=== PATIENT | female | born 1930 | race Caucasian/White ===

== ENCOUNTER 2017-02-26 00:08 | Inpatient (IN) | payer OTHER, MEDICARE ==
[~2017-02-26] VITALS: Ht 149.9 cm; Wt 49.4 kg
--- NOTE | ~2017-02-26 | HC ---
[facility] [place] [address] CONSULTATION Name: JOELLEN LIVE Room #: 304-P [facility] IN M.R.#: [id number] Admission: 02/26/17 Attend Phys: Haris Overton MD Discharge: 03/01/17 Date of : 32 Report #: [id number] THIS REPORT FOR: //name// CC: Cuate Santiago DATE OF SERVICE: 02/27/2017 REASON FOR CONSULTATION: Exacerbation of chronic obstructive pulmonary disease. IMPRESSION: 1. Acute on chronic respiratory failure. 2. Debilitation. 3. Hypertension. 4. Anxiety. 5. Possible pneumonia. PLAN: We will titrate off corticosteroids, continue pulmonary toilet, PT/OT to see, currently on Levaquin, may consider alternatives. HISTORY OF PRESENT ILLNESS: The patient is a very pleasant 86-year-old female, had seen Dr. Santiago a couple of weeks ago, had some corticosteroids, I believe, and antibiotic; however, still worsened despite this and comes in through the Emergency Room with progressive shortness of breath. No definite chest pain, palpitations. Positive cough, no sputum production. PAST SURGICAL HISTORY: Include hysterectomy, left hip repair. ALLERGIES: ASPIRIN, CODEINE, and PENICILLIN. MEDICATIONS: Included diltiazem, hydrochlorothiazide, prednisone, multivitamin, Fosamax, iron, Zocor, Daliresp, DuoNeb, Spiriva, lisinopril. SOCIAL HISTORY: Positive tobacco in the past. Rare ETOH. FAMILY HISTORY: Noncontributory. REVIEW OF SYSTEMS: No fever, chills or night sweats. Positive cough, no sputum, no hemoptysis, hematemesis, or hematuria. No syncope. No new myalgias or arthralgias. No vomiting. PHYSICAL EXAMINATION: VITAL SIGNS: Temperature 98.2, pulse 85, respirations 18, BP 103/55. EYES: Negative icterus. NECK: Trachea midline. [facility] [address] [place] [address] CONSULTATION Name: JOELLEN LIVE SOCTT Room #: 304-P ON LICENSE OF [facility]#: [id number] Admission: 02/26/17 Attend Phys: Haris Overton MD Discharge: 03/01/17 Date of : 32 Report #: [id number] LUNGS: Showed decreased breath sounds, wheeze bilaterally. HEART: Regular. ABDOMEN: Bowel sounds present. EXTREMITIES: Showed no edema. GENERAL: Sitting up, eating when I saw her earlier. LABORATORY DATA: Labs and x-rays were reviewed. <ELECTRONICALLY SIGNED> By: Alverto Olvera MD 03/03/17 1449 1945 [id number] Alverto Olvera MD /nt
--- NOTE | ~2017-02-26 | 2DMMODE ---
[facility] [place] [employer] [place] [address] 2 D/M-MODE ECHOCARDIOGRAM Name: LIVEJOELLEN Room #: 304-P [facility] IN M.R.#: [id number] Admission: 02/26/17 Attend Phys: Erik Lau Discharge: Date of : 32 Date of Service: 02/27/17 1542 Report #: [id number] THIS REPORT FOR: //name// APPROVED REPORT Study performed: 02/27/2017 14:10:02 EXAM: Comprehensive 2D, Doppler, and color-flow Echocardiogram Patient Location: Bedside Room #: 304 Blood Pressure: 157/53 mmHg HR: 75 bpm Rhythm: NSR Other Information Study Quality: Adequate Indications Shortness of breath, CHF, ?PHTN. Hx: COPD, HTN 2D Dimensions RVDd: 34.82 mm LVEF(%): 62.94 (>50%) IVSd: 9.71 (7-11mm) LVOT Diam: 19.92 (18-24mm) LVDd: 42.87 mm PWd: 9.15 (7-11mm) Ascending Ao: 35.76 (22-36mm) LVDs: 28.39 (25-40mm) Aortic Root: 30.93 mm Montalvo's LVEF: 62.94 % Volumes Left Atrial Volume (Systole) Single Plane 4CH: 50.56 mL Single Plane 2CH: 61.20 mL LA ESV Index: 42.00 mL/m2 Aortic Valve AoV Peak Jesus.: 3.27 m/s AO Peak Gr.: 42.69 mmHg LVOT Max P.47 mmHg AO Mean Gr.: 25.46 mmHg AO V2 Mean: 2.43 m/s LVOT Max V: 1.27 m/s AO V2 VTI: 78.59 cm SCARLET Vmax: 1.21 cm2 [facility] [address] [place] [address] 2 D/M-MODE ECHOCARDIOGRAM Name: JOELLEN LIVE Room #: 304-P [facility]..#: [id number] Admission: 02/26/17 Attend Phys: Erik Lau Discharge: Date of : 32 Date of Service: 02/27/17 1542 Report #: [id number] Mitral Valve MV Mean Gr.: 5.61 mmHg E/A Ratio: 0.8 MV Decel. Time: 219.82 ms MV E Max Jesus.: 1.46 m/s MV A Jesus.: 1.73 m/s MV VTI: 421.02 mm MV PHT: 63.75 ms IVRT: 50.75 ms Pulmonary Valve PV Peak Jesus.: 1.29 m/s PV Peak Gr.: 6.68 mmHg Pulmonary Vein P Vein S: 61.1 m/s P Vein D: 48.5 m/s Tricuspid Valve TR Peak Jesus.: 2.34 m/s RAP Estimate: 10.00 mmHg TR Peak Gr.: 21.95 mmHg RVSP: 32.00 mmHg Left Ventricle The left ventricle is normal size. There is normal LV segmental wall motion. There is normal left ventricular wall thickness. Left ventricular systolic function is normal. LVEF is 55-60%. Grade I - abnormal relaxation pattern. Right Ventricle The right ventricle is normal size. The right ventricular systolic function is normal. Atria Left atrium is moderately dilated. Right atrium is at the upper limits of normal. Aortic Valve Aortic valve is moderately calcified. No aortic regurgitation is present. Moderate aortic stenosis. SCARLET by continuity equation is 1.3cm2. Mitral Valve Moderate to severe mitral annular calcification. Mild mitral regurgitation. No mitral stenosis. Tricuspid Valve The tricuspid valve is normal in structure. There is mild tricuspid regurgitation. The right atrial pressure is estimated at 10 [place] [address] 2 D/M-MODE ECHOCARDIOGRAM Name: JOELLEN LIVE Room #: 304-P [facility] IN [facility]#: [id number] Admission: 02/26/17 Attend Phys: Erik Lau Discharge: Date of : 32 Date of Service: 02/27/17 1542 Report #: [id number] There is mild pulmonary hypertension with an estimated PAP of 32mmHg. Pulmonic Valve The pulmonary valve is normal in structure. Mild pulmonic regurgitation. Great Vessels The aortic root is normal in size. The ascending aorta is normal in size. IVC is dilated. Pericardium There is no pericardial effusion. <Conclusion> The left ventricle is normal size. Left ventricular systolic function is normal. Grade I - abnormal relaxation pattern. The right ventricle is normal size. Left atrium is moderately dilated. Moderate aortic stenosis. SCARLET by continuity equation is 1.3cm2. Moderate to severe mitral annular calcification. Mild mitral regurgitation. There is mild tricuspid regurgitation. The right atrial pressure is estimated at 10 mmHg. There is mild pulmonary hypertension with an estimated PAP of 32mmHg. <ELECTRONICALLY SIGNED> By: Raul Eng MD 02/27/17 1542 [id number] Raul Eng MD /INF
--- NOTE | ~2017-02-26 | H ---
[facility] [place] [address] HISTORY AND PHYSICAL Name: JOELLEN LIVE Room #: 304-P [facility] IN M.R.#: [id number] Admission: 02/26/17 Attend Phys: Haris Overton MD Discharge: 03/01/17 Date of : 32 Report #: [id number] THIS REPORT FOR: //name// CC: Cuate Santiago ATTENDING PHYSICIAN: Ting Jennings MD PRIMARY CARE PHYSICIAN: Cuate Moraes MD CHIEF COMPLAINT: Shortness of air. HISTORY OF PRESENT ILLNESS: The patient is an 86-year-old female with a history of oxygen dependent COPD. She came into the ER complaining of shortness of breath. It has been getting worse since yesterday morning. She normally wears 4 liters of oxygen at home. She has had mostly a nonproductive cough that has been getting more frequent. She has been using some [id number] cough syrup. She just saw Dr. Santiago with pulmonary last week and was started on prednisone and doxycycline. Despite this her symptoms have been worsened. She has been hospitalized here multiple times for COPD exacerbation. She denies any fevers or chills. Her oxygen saturation has been fine on her normal 4 liters. She has been admitted for COPD exacerbation. PAST MEDICAL HISTORY: COPD, hypertension, hyperlipidemia, PVD, anxiety. PAST SURGICAL HISTORY: Left hip repair, hysterectomy. ALLERGIES: ASPIRIN, CODEINE, AND PENICILLIN. HOME MEDICATIONS: Xanax 0.5 mg p.o. t.i.d. p.r.n., lisinopril 10 mg daily, Spiriva 1 capsule daily, DuoNebs q. 4 hours, Advair 2 puffs b.i.d., donepezil 5 mg daily, Tylenol p.r.n., vitamin D daily, Daliresp 500 mg daily, Zocor 40 mg at bedtime, Fosamax weekly, iron 65 mg daily, multivitamin daily, prednisone 10 mg daily, hydrochlorothiazide 25 mg daily, Lasix 20 mg daily, diltiazem 180 mg daily. SOCIAL HISTORY: The patient is an ex-smoker, having quit 15-20 years ago after smoking since the age of 22. She drinks alcohol rarely, lives with her sister. She normally ambulates with a walker or cane. FAMILY HISTORY: Noncontributory. REVIEW OF SYSTEMS: Twelve point review of systems was reviewed with the patient, otherwise negative unless stated in the HPI. PHYSICAL EXAMINATION: [address] [address] HISTORY AND PHYSICAL Name: JOELLEN LIVE Room #: 304-P [facility].#: [id number] Admission: 02/26/17 Attend Phys: Haris Overton MD Discharge: 03/01/17 Date of : 32 Report #: [id number] GENERAL: The patient is an alert female in no acute distress. VITAL SIGNS: Temperature 37.1, heart rate 77, respirations 22, blood pressure is 167/69, oxygen 97% on room air. HEENT: PERRLA. Sclerae are nonicteric. Oral mucosa is pink and moist. NECK: Supple, no JVD noted. CARDIOVASCULAR: Normal S1, S2. No murmurs, rubs or gallops. RESPIRATORY: Breath sounds do have some bilateral rhonchi. She does have an extended expiratory phase which seems very worst. She does have a few fine crackles in both bases as well. ABDOMEN: Soft, nontender, nondistended with positive bowel sounds. VASCULAR: No edema noted. Pedal pulses are 2+. NEUROLOGIC: The patient is alert and oriented x 3. Speech is clear. She is moving all extremities equally. No focal neuro deficits noted. I did see her ambulate. She was steady on her feet. LABS AND DIAGNOSTICS: ABG showed a pH of 7.44, pCO2 of 61.6, pO2 of 72.3, bicarbonate of 41.4, and lactate of 0.96. Sodium is 125, potassium 2.6, BUN 17, creatinine 0.8, glucose 113, magnesium 1.6, WBC is 9.8, hemoglobin 11.2 and platelets 375. ASSESSMENT AND PLAN: 1. Acute on chronic respiratory failure. Continue with IV steroids and breathing treatments. We will hold off on any further antibiotic. chest x-ray was negative and she is afebrile without leukocytosis. She did have some mild vascular congestion on her chest x-ray. We will add BNP and if elevated we will try a dose of Lasix. 2. Hypertension. Blood pressure is elevated. Resume home meds. 3. Hypomagnesemia and hypokalemia. These will be replaced and then initiate electrolyte replacement protocol. 4. Anxiety. Continue Xanax as needed at home. 5. Deep venous thrombosis prophylaxis, place sequential compression devices. We will continue to follow the patient closely throughout the hospitalization and make changes based on clinical status. <ELECTRONICALLY SIGNED> By: HELEN Conteh 03/07/17 0109 0915 [address], LABELLING MACHINE OPERATOR /nt
[~2017-02-26 00:08] MED LIST: ACCUNEB SO1.25 MG/1 IH; ACCUNEB SO1.25 MG/1 INH; ACETAMINOPHEN650 M5 PO; ADULT LOW DOSE81 MG PO; ADVAIR 250-501 EACH INH; ADVAIR HFA 1112 UNIT INH; ALBUTEROL NEB; ALBUTEROL2.5 MG/31 INH; ALPRAZOLAM 0.0.25 M1 PO; ALPRAZOLAM 0.50.5 M1 PO; ARICEPT 5 MG TAB5 MG PO; AVELOX 400 MG400 MG PO; CARDIZEM CD180 MG PO; CENTRUM SILVER1 EAC4 PO; CEPACOL SORE T1 EAC7 PO; CERTAGEN TABLE1 EACH PO; DALIRESP500 MCG PO; DILTIAZEM 24HR180 MG PO; DILTIAZEM ER180 M1 PO; DOXYCYCLINE 10100 M1 PO; DOXYCYCLINE 10100 MG PO; ENOXAPARIN30 MG/0.1 SUBQ; FISH OIL 1,001000 M2 PO; FOSAMAX 70 MG T70 M1 PO; FUROSEMIDE 20 M20 MG PO; HEPARIN SO5000 UNIT2 SUBQ; HYDROCHLOROTHIA25 M1 PO; HYDROCHLOROTHIA25 M2 PO; HYDROCODON-ACE1 EAC7 PO; IRON325 PO; K-DUR 20 MEQ T20 MEQ PO; KLOR-CON 1010 MEQ PO; LASIX 20 MG TAB20 MG PO; LEVAQUIN 500 M500 M2 PO; LISINOPRIL10 MG PO; MELATONIN3 MG PO; MUCINEX TA600 MG/TA1 PO; NORCO 5-325 TA1 EACH PO; NORVASC 5 MG TAB5 MG PO; POTASSIUM20 PO; PREDNISONE; PREDNISONE 10 M10 M1 PO; PREDNISONE 10 M10 MG PO; PREDNISONE 20 M20 M1 PO; PREDNISONE 20 M20 MG PO; PREDNISONE 5 MG5 MG PO; PREDNISONE PO; PREDNISONE50 MG PO; PRILOSEC 20 MG20 MG PO; PROAIR HFA8.5 GM INH; PROCARDIA10 MG PO; RESTORIL15 MG PO; SIMVASTATIN40 MG PO; SPIRIVA; SPIRIVA INH; SYMBICORT160 MCG/4. INH; SYMBICORT80 MCG/4.1 IH; SYMBICORT80 MCG/4.1 INH; TYLENOL325 MG PO; VITAMIN D1000 UNI1 PO; XANAX 0.25 MG0.25 MG PO; ZOCOR 20 MG TAB20 M1 PO; ZOCOR40 MG PO; ZOFRAN4 MG PO
[2017-02-26 00:09] VITALS: BP 167/69
[2017-02-26 00:48] LABS: ABG SAMPLE TYPE ARTERIAL; BE(vivo) 14.8 mmol/L (-2 to +3); HCO3 41.4 mmol/L (22.0-26.0); LACTATE 0.96 mmol/L (0.5-2.0); O2(CT) 15.5 mL/dL (15.0-23.0); O2Hb 93.4 % (92.0-98.0); PCO2 61.6 mmHg (35.0-45.0); PO2 72.3 mmHg (80.0-100.0); STICK SITE R.BRACHIAL; pH 7.445 (7.360-7.450); sO2 94.7 % (92.0-98.0); tCO2 43.3 mmol/L (24.0-30.0)
[2017-02-26 01:07] LABS: HEMATOCRIT 33.2 % (37.0-47.0); HEMOGLOBIN 11.2 gm/dL (12.0-15.0); MCH 29.9 pg (26.0-34.0); MCHC 33.8 g/dL (28.0-37.0); MCV 88.5 fL (80.0-100.0); PLATELET COUNT 375 thou/uL (150-400); RBC 3.75 mil/uL (4.20-5.00); RDW 14.2 % (10.5-14.5); WBC 9.8 thou/uL (4.0-11.0)
[2017-02-26 01:08] LABS: MANUAL DIFF YES
[2017-02-26 01:13] LABS: CALCIUM 9.3 mg/dL (8.5-10.1); CREATININE 0.8 mg/dL (0.6-1.0)
[2017-02-26 01:15] LABS: POTASSIUM 2.6 mmol/L (3.5-5.1)
[2017-02-26 01:22] LABS: ABSOLUTE NEUTROPHILS 7.5 thou/uL (1.4-8.2); METAMYELOCYTES 1 %; TOTAL CELL COUNT 100
[2017-02-26 01:59] VITALS: BP 147/72
[2017-02-26 02:20] VITALS: BP 159/61
[2017-02-26] MEDS ORDERED: KLOR-CON 1010 MEQ PO (03:50)
[2017-02-26 07:29] VITALS: BP 151/75
[2017-02-26 07:54] LABS: URINE BILIRUBIN NEGATIVE (Negative); URINE BLOOD TRACE (Negative); URINE COLOR YELLOW; URINE GLUCOSE-RANDOM* NEGATIVE (Negative); URINE KETONES TRACE (Negative); URINE NITRITE NEGATIVE (Negative); URINE PROTEIN (DIPSTICK) NEGATIVE (Negative); URINE UROBILINOGEN 0.2 E.U./dl (0.2-1.0)
[2017-02-26 15:08] VITALS: BP 132/87
[2017-02-26 20:00] VITALS: BP 125/70
[2017-02-27 04:49] VITALS: BP 129/53
[2017-02-27 05:35] LABS: CALCIUM 8.6 mg/dL (8.5-10.1); CREATININE 0.9 mg/dL (0.6-1.0)
[2017-02-27 07:32] VITALS: BP 127/53
[2017-02-27 16:17] VITALS: BP 103/55
[2017-02-27 19:50] VITALS: BP 139/49
[2017-02-28 04:20] VITALS: BP 141/62
[2017-02-28 05:45] LABS: HEMATOCRIT 29.5 % (37.0-47.0); HEMOGLOBIN 9.8 gm/dL (12.0-15.0); MCH 29.4 pg (26.0-34.0); MCHC 33.4 g/dL (28.0-37.0); MCV 88.2 fL (80.0-100.0); PLATELET COUNT 387 thou/uL (150-400); RBC 3.34 mil/uL (4.20-5.00); RDW 14.4 % (10.5-14.5); WBC 18.5 thou/uL (4.0-11.0)
[2017-02-28 05:46] LABS: MANUAL DIFF YES
[2017-02-28 06:00] LABS: CALCIUM 8.8 mg/dL (8.5-10.1); POTASSIUM 4.2 mmol/L (3.5-5.1)
[2017-02-28 07:33] LABS: ABSOLUTE NEUTROPHILS 17.6 thou/uL (1.4-8.2); ANISOCYTOSIS 1+; TOTAL CELL COUNT 100
[2017-02-28 07:34] LABS: OVALOCYTES FEW; SCHISTOCYTES FEW
[2017-02-28 07:54] VITALS: BP 136/52
[2017-02-28 16:17] VITALS: BP 135/75
[2017-02-28 20:33] VITALS: BP 138/58
[2017-03-01 03:07] VITALS: BP 16/66
[2017-03-01 08:02] VITALS: BP 149/56
[2017-03-01 10:58] LABS: HEMATOCRIT 29.6 % (37.0-47.0); HEMOGLOBIN 9.7 gm/dL (12.0-15.0); MCH 29.8 pg (26.0-34.0); MCHC 32.9 g/dL (28.0-37.0); MCV 90.6 fL (80.0-100.0); PLATELET COUNT 392 thou/uL (150-400); RBC 3.26 mil/uL (4.20-5.00); RDW 14.5 % (10.5-14.5); WBC 15.1 thou/uL (4.0-11.0)
[2017-03-01 10:59] LABS: MANUAL DIFF YES
[2017-03-01 11:07] LABS: CALCIUM 8.8 mg/dL (8.5-10.1)
[2017-03-01 11:24] LABS: ABSOLUTE NEUTROPHILS 13.9 thou/uL (1.4-8.2); ANISOCYTOSIS 1+; METAMYELOCYTES 1 %; MYELOCYTES 1 %; TOTAL CELL COUNT 100
[2017-03-01 11:25] LABS: OVALOCYTES FEW; SCHISTOCYTES FEW
[2017-03-01] MEDS ORDERED: LEVAQUIN 250 M250 MG PO (11:27)
[2017-03-01] MEDS ORDERED: PREDNISONE 20 M20 M1 PO (11:27)
[2017-03-01 13:43] VITALS: BP 149/56
== END 2017-03-01 14:15 | DRG 871 ==
LOC: ER 00:08 → EROBS 01:34 → 3N 01:34
PROVIDERS: Emergency Medicine; Family Medicine; Hospitalist; Nurse Practitioner Acute Care
DX: A41.9 Sepsis, unspecified organism (principal); J96.21 Acute and chronic respiratory failure with hypoxia; J18.9 Pneumonia, unspecified organism; J44.1 Chronic obstructive pulmonary disease with (acute) exacerbation; J44.0 Chronic obstructive pulmonary disease with (acute) lower respiratory infection; E87.1 Hypo-osmolality and hyponatremia; Z99.81 Dependence on supplemental oxygen; I10 Essential (primary) hypertension; F41.9 Anxiety disorder, unspecified; I27.2 Other secondary pulmonary hypertension; E78.5 Hyperlipidemia, unspecified; I73.9 Peripheral vascular disease, unspecified; Z96.642 Presence of left artificial hip joint; E83.42 Hypomagnesemia; E87.6 Hypokalemia; Z96.659 Presence of unspecified artificial knee joint; J98.4 Other disorders of lung; D64.9 Anemia, unspecified; D72.829 Elevated white blood cell count, unspecified; Z87.891 Personal history of nicotine dependence; Z90.710 Acquired absence of both cervix and uterus; Z88.6 Allergy status to analgesic agent; Z88.0 Allergy status to penicillin; Z79.899 Other long term (current) drug therapy
CPT/HCPCS: 10096

== ENCOUNTER 2017-06-04 12:10 | Inpatient (IN) | payer OTHER, MEDICARE ==
[~2017-06-04] VITALS: Ht 149.9 cm; Wt 51.3 kg
--- NOTE | ~2017-06-04 | EKG ---
[address] [place] [address] ELECTROCARDIOGRAM REPORT Name: MARIA TJOELLEN Room #: 208-P ADM IN M.R.#: [id number] Admission: 06/04/17 Attend Phys: Haris Overton MD Discharge: Date of : 32 Report #: [id number] THIS REPORT FOR: //name// [facility] ED Test Date: 2017-06-04 Test Time: 12:19:08 Pat Name: JOELLEN LIVE Department: Room: 208 Gender: F Senior Sales Administrator: GRACIELA : 1930 Requested By: Den Subramanian Order Number: [id number] MD: Jameson Lawson Measurements Intervals [place] Rate: 95 P: 68 MA: 160 QRS: 71 QRSD: 89 T: 62 QT: 346 QTc: 435 Interpretive Statements Sinus rhythm Left atrial enlargement Borderline low voltage, extremity leads Poor R wave progression Compared to ECG 05/26/2016 11:11:17 Ventricular premature complex(es) no longer present Electronically Signed On 06-05-2017 7:50:58 CDT by Jameson Lawson [email or web address] <ELECTRONICALLY SIGNED> By: Jameson Lawson MD, FACC 06/05/17 0750 1219 1219 Jameson Lawson MD, [facility] /EPI
--- NOTE | ~2017-06-04 | 2DMMODE ---
[facility] [place] [address] 2 D/M-MODE ECHOCARDIOGRAM Name: LIVEJOELLEN Room #: 208-P ADM IN M.R.#: [id number] Admission: 06/04/17 Attend Phys: Erik Lau Discharge: Date of : 32 Date of Service: 06/05/17 0831 Report #: [id number] THIS REPORT FOR: //name// APPROVED REPORT Study performed: 06/05/2017 06:23:22 EXAM: Limited 2D, Doppler, and color-flow Echocardiogram Patient Location: Bedside Room #: 208 Status: routine BSA: 1.47 HR: 84 bpm BP: 146/62 mmHg Rhythm: NSR Other Information Study Quality: Good Indications Limited echo for CHF, SOB, elevated BNP. Hx: COPD (Complete echo done 02/27/2017) 2D Dimensions LVOT Diam: 20.74 (18-24mm) Aortic Valve AoV Peak Jesus.: 3.28 m/s AO Peak Gr.: 42.98 mmHg LVOT Max P.88 mmHg AO Mean Gr.: 26.69 mmHg AO V2 Mean: 2.49 m/s LVOT Max V: 1.10 m/s AO V2 VTI: 72.39 cm SCARLET Vmax: 1.14 cm2 Tricuspid Valve TR Peak Jesus.: 2.29 m/s RAP Estimate: 10.00 mmHg TR Peak Gr.: 20.98 mmHg PA Pressure: 31.00 mmHg Left Ventricle The left ventricle is normal size. There is normal LV segmental wall motion. The left ventricular systolic function is normal. LVEF is 55-60%. This study is not technically sufficient to allow evaluation of the LV diastolic function. Right Ventricle [facility] [address] [place] [address] 2 D/M-MODE ECHOCARDIOGRAM Name: JOELLEN LIVE SCOTT Room #: 208-P ADM IN .R.#: [id number] Admission: 06/04/17 Attend Phys: Erik Lau Discharge: Date of : 32 Date of Service: 06/05/17 0831 Report #: [id number] The right ventricle is normal size. The right ventricular systolic function is normal. Atria Left atrium is dilated. The right atrium size is normal. Aortic Valve Aortic valve is calcified, moderately stenotic. Trace aortic regurgitation. There is moderate valvular aortic stenosis. Calculated aortic valve area is 1.1 cm2 with maximum pressure gradient of 43 mmHg and mean pressure gradient of 27 mmHg. Mitral Valve Heavy mitral annular calcification. Mild mitral regurgitation. Tricuspid Valve The tricuspid valve is normal in structure. There is trace tricuspid regurgitation. The right atrial pressure is estimated at 10 mmHg. There is mild pulmonary hypertension with an estimated PAP of 30mmHg. Great Vessels IVC is dilated and collapses >50% with inspiration. Pericardium There is no pericardial effusion. <Conclusion> The left ventricular systolic function is normal. LVEF is 55-60%. Normal LV segmental wall motion. Aortic valve is calcified, moderately stenotic. Trace insufficiency Calculated aortic valve area is 1.1 cm2 with maximum pressure gradient of 43 mmHg and mean pressure gradient of 27 mmHg. Heavy mitral annular calcification. Mild mitral regurgitation. Pulmonary artery pressure of 30mmHg There is no pericardial effusion. <ELECTRONICALLY SIGNED> By: Jameson Lawson MD, FACC 06/05/17830 0 0 Jameson Lawson MD, FACC /INF
[2017-06-04 12:10] VITALS: BP 161/67
[~2017-06-04 12:10] MED LIST changes: +LEVAQUIN 250 M250 MG PO
[2017-06-04] MEDS ORDERED: MELATONIN5 M1 PO (12:23)
[2017-06-04] MEDS ORDERED: IRON325 PO (12:23)
[2017-06-04 12:24] LABS: ABG SAMPLE TYPE ARTERIAL; BE(vivo) 7.8 mmol/L (-2 to +3); HCO3 32.9 mmol/L (22.0-26.0); O2(CT) 16.1 mL/dL (15.0-23.0); O2Hb 96.2 % (92.0-98.0); PCO2 48.7 mmHg (35.0-45.0); PO2 102.6 mmHg (80.0-100.0); pH 7.448 (7.360-7.450); sO2 97.8 % (92.0-98.0); tCO2 34.4 mmol/L (24.0-30.0)
[2017-06-04 12:25] LABS: STICK SITE R.RADIAL
[2017-06-04] MEDS ORDERED: HYDROCHLOROTHIA25 M2 PO (12:25)
[2017-06-04 12:43] LABS: HEMATOCRIT 33.5 % (37.0-47.0); HEMOGLOBIN 10.9 gm/dL (12.0-15.0); MANUAL DIFF YES; MCH 29.5 pg (26.0-34.0); MCHC 32.4 g/dL (28.0-37.0); PLATELET COUNT 355 thou/uL (150-400); RBC 3.68 mil/uL (4.20-5.00); WBC 13.7 thou/uL (4.0-11.0)
[2017-06-04 13:22] LABS: ABSOLUTE NEUTROPHILS 10.7 thou/uL (1.4-8.2); PLATELET ESTIMATE NORMAL; TOTAL CELL COUNT 100
[2017-06-04 13:24] LABS: CALCIUM 8.9 mg/dL (8.5-10.1); CREATININE 0.7 mg/dL (0.6-1.0); POTASSIUM 3.8 mmol/L (3.5-5.1)
[2017-06-04 13:37] LABS: TROPONIN-I 0.04 ng/mL (<0.04-0.07)
[2017-06-04 14:31] VITALS: BP 136/57
[2017-06-04 15:40] VITALS: BP 131/56
[2017-06-04 16:02] VITALS: BP 165/81
[2017-06-04 20:03] VITALS: BP 151/72
[2017-06-04 23:37] VITALS: BP 170/77
[2017-06-05 02:48] VITALS: BP 146/62
[2017-06-05 04:06] LABS: ALBUMIN 2.8 g/dL (3.4-5.0); CALCIUM 8.8 mg/dL (8.5-10.1); CREATININE 1.1 mg/dL (0.6-1.0); POTASSIUM 3.8 mmol/L (3.5-5.1); TOTAL BILIRUBIN 0.3 mg/dL (<0.1-1.0); TOTAL PROTEIN 6.3 g/dL (6.4-8.2)
[2017-06-05 08:26] VITALS: BP 120/69
[2017-06-05 17:12] VITALS: BP 159/59
[2017-06-05 20:12] VITALS: BP 133/60
[2017-06-06 03:09] VITALS: BP 127/53
[2017-06-06 08:00] VITALS: BP 143/56
[2017-06-06 10:19] LABS: CALCIUM 8.8 mg/dL (8.5-10.1); CREATININE 1.3 mg/dL (0.6-1.0); POTASSIUM 3.9 mmol/L (3.5-5.1)
[2017-06-06 11:55] VITALS: BP 126/54
[2017-06-06 16:05] VITALS: BP 126/65
[2017-06-06 19:40] VITALS: BP 128/56
[2017-06-06 23:23] VITALS: BP 129/53
[2017-06-07] VITALS (7 sets, daily range): BP systolic 137–145; BP diastolic 67–95
[2017-06-07 07:35] LABS: HEMATOCRIT 31.4 % (37.0-47.0); HEMOGLOBIN 10.3 gm/dL (12.0-15.0); MCH 29.9 pg (26.0-34.0); MCHC 32.9 g/dL (28.0-37.0); MCV 90.8 fL (80.0-100.0); PLATELET COUNT 350 thou/uL (150-400); RBC 3.46 mil/uL (4.20-5.00); RDW 14.8 % (10.5-14.5); WBC 13.2 thou/uL (4.0-11.0)
[2017-06-07 07:41] LABS: MANUAL DIFF YES
[2017-06-07 07:42] LABS: ANION GAP < 0 mmol/L (7-16); BUN 36 mg/dL (7-18); CALCIUM 9.4 mg/dL (8.5-10.1); CHLORIDE 93 mmol/L (98-107); CO2 41 mmol/L (21-32); CREATININE 1.2 mg/dL (0.6-1.0); GLUCOSE 107 mg/dL (74-106); POTASSIUM 4.3 mmol/L (3.5-5.1); SODIUM 133 mmol/L (136-145)
[2017-06-07 10:16] LABS: ABSOLUTE NEUTROPHILS 11.9 thou/uL (1.4-8.2); TOTAL CELL COUNT 100
[2017-06-07 10:17] LABS: ANISOCYTOSIS 1+
[2017-06-07] MEDS ORDERED: PANTOPRAZOLE SO40 M1 PO (12:07)
[2017-06-07] MEDS ORDERED: MIRALAX17 GM PO (12:07)
[2017-06-07] MEDS ORDERED: PREDNISONE 20 M20 M1 PO (12:07)
== END 2017-06-07 15:55 | disposition home health service (06) | DRG 291 ==
LOC: ER 12:10 → 2N 14:14 → EROBS 14:14 → 2N 15:43
PROVIDERS: Emergency Medicine; Family Medicine
DX: I11.0 Hypertensive heart disease with heart failure (principal); J96.22 Acute and chronic respiratory failure with hypercapnia; J96.21 Acute and chronic respiratory failure with hypoxia; E44.0 Moderate protein-calorie malnutrition; J44.1 Chronic obstructive pulmonary disease with (acute) exacerbation; E87.1 Hypo-osmolality and hyponatremia; I50.31 Acute diastolic (congestive) heart failure; F41.9 Anxiety disorder, unspecified; E78.5 Hyperlipidemia, unspecified; D64.9 Anemia, unspecified; Z66 Do not resuscitate; I35.0 Nonrheumatic aortic (valve) stenosis; Z90.710 Acquired absence of both cervix and uterus; Z88.0 Allergy status to penicillin; Z88.6 Allergy status to analgesic agent; Z88.8 Allergy status to other drugs, medicaments and biological substances; Z87.891 Personal history of nicotine dependence; Z99.81 Dependence on supplemental oxygen; Z68.22 Body mass index [BMI] 22.0-22.9, adult; Z79.899 Other long term (current) drug therapy
CPT/HCPCS: 10081

== ENCOUNTER 2017-07-06 02:52 | Inpatient (IN) | payer OTHER, MEDICARE ==
[~2017-07-06] VITALS: Ht 149.9 cm; Wt 49.9 kg
--- NOTE | ~2017-07-06 | EKG ---
[place] [address] [facility] [place] [address] ELECTROCARDIOGRAM REPORT Name: JOELLEN LIVE Room #: 422-P [facility] IN ..#: [id number] Admission: 07/06/17 Attend Phys: Ephraim Barrett MD Discharge: Date of : 32 Report #: [id number] THIS REPORT FOR: //name// [facility] ED Test Date: 2017-07-06 Test Time: 03:01:31 Pat Name: JOELLEN LIVE Department: Room: 422 Gender: F Retail Center Receptionist: [id number] : 1930 Requested By: Manoj Olsne Order Number: [id number] MD: Jameson Lawson Measurements Intervals [place] Rate: 86 P: -86 [place]: 152 QRS: 66 QRSD: 89 T: 59 QT: 354 QTc: 424 Interpretive Statements Sinus or ectopic atrial rhythm Poor R wave progression Nonspecific T abnormalities, lateral leads Compared to ECG 06/04/2017 12:19:08 Ectopic atrial rhythm now present Electronically Signed On 07-07-2017 13:34:10 CDT by Jameson Lawson [email or web address] <ELECTRONICALLY SIGNED> By: Jameson Lawson MD, [facility] 07/07/17 1334 030 0301 Jameson Lawson MD, [facility] /EPI
--- NOTE | ~2017-07-06 | EKG ---
[place] [address] [facility] [employer] [place] [address] ELECTROCARDIOGRAM REPORT Name: MARIA TJOELLEN Room #: 422- ADM IN M.R.#: [id number] Admission: 07/06/17 Attend Phys: Farzad Mesa MD Discharge: Date of : 32 Report #: [id number] THIS REPORT FOR: //name// [facility] Test Date: 2017-07-09 Test Time: 11:34:36 Pat Name: JOELLEN LIVE Department: Room: 422 P Gender: F Business Strategist: brisa : 1930 Requested By: Farzad Mesa Order Number: [id number] MD: Measurements Intervals [place] Rate: 70 P: 52 [place]: 142 QRS: 25 QRSD: 90 T: -3 QT: 392 QTc: 423 Interpretive Statements Sinus rhythm Borderline T abnormalities, inferior leads Compared to ECG 07/06/2017 03:01:31 Ectopic atrial rhythm no longer present Poor R-wave progression no longer present T-wave abnormality still present DO NOT READ THIS.....This needs to be DELETED [email or web address] By: [id number] [facility] [place], [place] /EPI
--- NOTE | ~2017-07-06 | EKG ---
[address] [place] [address] ELECTROCARDIOGRAM REPORT Name: JOELLEN LIVE Room #: 422- ADM IN M.R.#: [id number] Admission: 07/06/17 Attend Phys: Farzad Mesa MD Discharge: Date of : 32 Report #: [id number] THIS REPORT FOR: //name// [facility] Test Date: 2017-07-08 Test Time: 22:59:07 Pat Name: JOELLEN LIVE Department: Room: 422 Gender: F Snow Shoveler: unk : 1930 Requested By: Farzad Mesa Order Number: [id number] MD: Jameson Lawson Measurements Intervals [place] Rate: 95 P: 70 [place]: 161 QRS: 57 QRSD: 94 T: 30 QT: 353 QTc: 444 Interpretive Statements Sinus rhythm Left atrial enlargement Abnormal R-wave progression, late transition Compared to ECG 07/06/2017 03:01:31 Atrial abnormality now present Ectopic atrial rhythm no longer present Electronically Signed On 07-10-2017 7:43:22 CDT by Jameson Lawson [email or web address] <ELECTRONICALLY SIGNED> By: Jameson Laswon MD, [facility] 07/10/17 0743 2259 2259 Jameson Lawson MD, [facility] /EPI
--- NOTE | ~2017-07-06 | HC ---
[facility] [place] [address] CONSULTATION Name: JOELLEN LIVE Room #: 422-P ADM IN M.R.#: [id number] Admission: 07/06/17 Attend Phys: Farzad Mesa MD Discharge: Date of : 32 Report #: [id number] THIS REPORT FOR: //name// CC: Cuate Barrett DATE OF SERVICE: 07/06/2017 REFERRAL PHYSICIAN: Dr. Barrett PRIMARY CARE PHYSICIAN: Dr. Moraes REASON FOR REFERRAL: COPD. HISTORY OF PRESENT ILLNESS: The patient is an 87-year-old white female with known COPD, presents to the Emergency Room with progressive dyspnea. A pulmonary consultation was requested. The patient is followed longitudinally by Dr. Santiago. She has known severe COPD. She is on chronic steroids. She was in her usual state of health until one day prior to presentation when she started to develop increasing dyspnea. She has also had trouble with bronchospasm and cough, which was productive of sputum. Her family notes that she gets supplies from [facility]. The niece noticed that the tubing for oxygen supply kinks very easily. She thinks that the patient may have become dyspneic because of lack of oxygen. Otherwise, she denies any recent febrile illness, night sweats or chills, chest pain or productive cough. She was last hospitalized this past May for exacerbation of COPD. PAST MEDICAL HISTORY: Includes severe COPD, chronic hypoxic respiratory failure on 4 liters of O2 24 hours a day, steroid dependent at 5 mg once a day, essential hypertension, diabetes mellitus type 2, peripheral vascular disease and early dementia. ALLERGIES: ASPIRIN, CODEINE AND PENICILLIN, reactions not specified. CURRENT MEDICATIONS: Reviewed in the MAR. FAMILY HISTORY: Noncontributory. SOCIAL HISTORY: The patient lives with the niece. She has smoked for many [facility] [address] [address] CONSULTATION Name: JOELLEN LIVEANINE Room #: 422-P [facility] IN [facility]#: [id number] Admission: 07/06/17 Attend Phys: Farzad Mesa MD Discharge: Date of : 32 Report #: [id number] years, but quit many years ago. She denies any alcohol use. REVIEW OF SYSTEMS: As mentioned above, otherwise 10-point system review negative. PHYSICAL EXAMINATION: GENERAL: She is awake, alert, in no apparent distress. VITAL SIGNS: Temperature is 98.7 degrees Fahrenheit, pulse is 96, respiratory rate is 18, blood pressure is 134/65 mmHg and saturation is 97%. HEENT: Normocephalic, atraumatic. NECK: Supple without any lymphadenopathy or thyromegaly. CHEST: Breath sounds are fair with mild expiratory wheezes. Few scattered crackles. CARDIOVASCULAR: Normal S1, S2. There are no murmurs or gallop. There is no JVD. There is no carotid bruit. Pulses are 2+/4+ bilaterally. ABDOMEN: Soft, nontender, no organomegaly or masses felt. GENITOURINARY: Deferred. RECTAL: Deferred. EXTREMITIES: There is no edema, cyanosis or clubbing. LABORATORY DATA: Chest x-ray shows questionable infiltrates in the bases. Otherwise, no significant changes noted. Electrolytes are normal. Liver function profile is normal. WBC 18,600 without bandemia. Hemoglobin 10.7, hematocrit 33. Arterial blood gas revealed pH 7.43, pCO2 of 57, pO2 of 73 and 4 liters of O2. IMPRESSION: 1. Progressive dyspnea in this 87-year-old white female. Etiology is likely due to exacerbation of very severe chronic obstructive pulmonary disease, pneumonia is felt to be less likely. 2. Acute on chronic hypercapnic hypoxic respiratory failure. 3. Questionable infiltrates, possible pneumonia. 4. Chronic obstructive pulmonary disease, very severe impairment, oxygen dependent, low-dose steroid dependent. Medical directive, do not resuscitate. RECOMMENDATION: Agree with current treatment plans including corticosteroids, bronchodilators. DVT and GI prophylaxis will be recommended. I have also discussed with the niece that she may want to discuss the concerns regarding option of tubing malfunction. <ELECTRONICALLY SIGNED> By: Ad Villegas MD 07/08/17 1209 1521 2312 Ad Villegas MD /nt
[~2017-07-06 02:52] MED LIST changes: +MELATONIN5 M1 PO; +MIRALAX17 GM PO; +PANTOPRAZOLE SO40 M1 PO
[2017-07-06 02:57] VITALS: BP 114/57
[2017-07-06 03:58] LABS: HEMATOCRIT 33.3 % (37.0-47.0); HEMOGLOBIN 10.7 gm/dL (12.0-15.0); MCH 29.4 pg (26.0-34.0); MCHC 32.2 g/dL (28.0-37.0); MCV 91.2 fL (80.0-100.0); PLATELET COUNT 325 thou/uL (150-400); RBC 3.64 mil/uL (4.20-5.00); RDW 15.5 % (10.5-14.5); WBC 18.6 thou/uL (4.0-11.0)
[2017-07-06 03:59] LABS: MANUAL DIFF YES
[2017-07-06 04:08] LABS: ANION GAP 2 mmol/L (7-16); BUN 25 mg/dL (7-18); CALCIUM 9.7 mg/dL (8.5-10.1); CHLORIDE 94 mmol/L (98-107); CO2 40 mmol/L (21-32); CREATININE 0.9 mg/dL (0.6-1.0); GLUCOSE 167 mg/dL (74-106); POTASSIUM 3.8 mmol/L (3.5-5.1); SODIUM 136 mmol/L (136-145)
[2017-07-06 04:11] LABS: PROTIME 9.7 Seconds (9.3-11.4)
[2017-07-06 04:16] LABS: ALBUMIN 3.6 g/dL (3.4-5.0); ALKALINE PHOSPHATASE 70 U/L (46-116); MAGNESIUM 1.5 mg/dL (1.8-2.4); SGOT 18 U/L (15-37); SGPT 22 U/L (30-65); TOTAL BILIRUBIN 0.4 mg/dL (<0.1-1.0); TOTAL PROTEIN 6.8 g/dL (6.4-8.2); TROPONIN-I < 0.04 ng/mL (<0.04-0.07)
[2017-07-06 04:36] LABS: ABG SAMPLE TYPE ARTERIAL; HCO3 38.1 mmol/L (22.0-26.0); LACTATE 1.04 mmol/L (0.5-2.0); O2(CT) 15.1 mL/dL (15.0-23.0); O2Hb 93.7 % (92.0-98.0); PCO2 57.7 mmHg (35.0-45.0); PO2 73.4 mmHg (80.0-100.0); STICK SITE R.RADIAL; pH 7.438 (7.360-7.450); sO2 94.9 % (92.0-98.0); tCO2 39.9 mmol/L (24.0-30.0)
[2017-07-06 05:25] LABS: ABSOLUTE NEUTROPHILS 16.6 thou/uL (1.4-8.2); TOTAL CELL COUNT 100
[2017-07-06 05:57] VITALS: BP 154/66
[2017-07-06 08:47] VITALS: BP 134/65
[2017-07-06 17:02] VITALS: BP 165/80
[2017-07-06 20:00] VITALS: BP 140/72
[2017-07-07 04:30] VITALS: BP 155/77
[2017-07-07 06:11] LABS: HEMATOCRIT 30.2 % (37.0-47.0); HEMOGLOBIN 9.9 gm/dL (12.0-15.0); MCH 29.5 pg (26.0-34.0); MCHC 32.8 g/dL (28.0-37.0); RBC 3.36 mil/uL (4.20-5.00); RDW 15.3 % (10.5-14.5); WBC 17.3 thou/uL (4.0-11.0)
[2017-07-07 06:25] LABS: CALCIUM 9.1 mg/dL (8.5-10.1); CREATININE 0.8 mg/dL (0.6-1.0); POTASSIUM 3.4 mmol/L (3.5-5.1)
[2017-07-07 08:45] VITALS: BP 140/75
[2017-07-07 17:20] VITALS: BP 185/90
[2017-07-07 19:43] VITALS: BP 161/84
[2017-07-08] VITALS (7 sets, daily range): BP systolic 158–209; BP diastolic 77–106
[2017-07-08 04:57] LABS: HEMATOCRIT 31.7 % (37.0-47.0); HEMOGLOBIN 10.3 gm/dL (12.0-15.0); MCH 29.4 pg (26.0-34.0); MCHC 32.3 g/dL (28.0-37.0); MCV 90.8 fL (80.0-100.0); RBC 3.49 mil/uL (4.20-5.00); RDW 15.4 % (10.5-14.5); WBC 17.4 thou/uL (4.0-11.0)
[2017-07-08 05:00] LABS: ALBUMIN 3.2 g/dL (3.4-5.0); CALCIUM 9.3 mg/dL (8.5-10.1); CREATININE 0.9 mg/dL (0.6-1.0); POTASSIUM 3.7 mmol/L (3.5-5.1)
[2017-07-09 04:00] VITALS: BP 195/95
[2017-07-09 08:05] VITALS: BP 181/94
[2017-07-09 11:29] VITALS: BP 140/50
[2017-07-09 17:33] VITALS: BP 146/65
[2017-07-09 20:00] VITALS: BP 135/69
[2017-07-10 04:30] VITALS: BP 167/67
[2017-07-10 09:05] VITALS: BP 144/73
[2017-07-10] MEDS ORDERED: LEVAQUIN 500 M500 M2 PO (12:09)
[2017-07-10] MEDS ORDERED: MUCINEX600 MG PO (12:09)
[2017-07-10] MEDS ORDERED: PREDNISONE 20 M20 MG PO (12:09)
[2017-07-10 12:19] VITALS: BP 143/73
[2017-07-10 12:53] VITALS: BP 143/73
== END 2017-07-10 14:26 | disposition home health service (06) | DRG 871 ==
LOC: ER 02:52 → EROBS 05:16 → 4E 05:16 → ENTRNSPT 07-10 14:07 → EDTRNSPTSTS 07-10 14:10 → 4E 07-10 14:26
PROVIDERS: Emergency Medicine; Hospitalist; Nurse Practitioner Family
DX: A41.9 Sepsis, unspecified organism (principal); J18.9 Pneumonia, unspecified organism; J96.21 Acute and chronic respiratory failure with hypoxia; J96.22 Acute and chronic respiratory failure with hypercapnia; J44.1 Chronic obstructive pulmonary disease with (acute) exacerbation; J44.0 Chronic obstructive pulmonary disease with (acute) lower respiratory infection; E11.51 Type 2 diabetes mellitus with diabetic peripheral angiopathy without gangrene; Z66 Do not resuscitate; F03.90 Unspecified dementia, unspecified severity, without behavioral disturbance, psychotic disturbance, mood disturbance, and anxiety; E78.5 Hyperlipidemia, unspecified; I50.9 Heart failure, unspecified; I11.0 Hypertensive heart disease with heart failure; F41.9 Anxiety disorder, unspecified; E83.42 Hypomagnesemia; Z96.649 Presence of unspecified artificial hip joint; Z88.6 Allergy status to analgesic agent; Z88.0 Allergy status to penicillin; Z87.891 Personal history of nicotine dependence; Z99.81 Dependence on supplemental oxygen; Z79.899 Other long term (current) drug therapy; Z90.710 Acquired absence of both cervix and uterus
CPT/HCPCS: 10783

== ENCOUNTER 2017-08-15 07:06 | Emergency (ER) | payer OTHER, MEDICARE ==
[~2017-08-15] VITALS: Ht 149.9 cm; Wt 50.8 kg
[~2017-08-15 07:06] MED LIST changes: +AZO BLADDER CO300 MG PO; +BENADRYL25 MG PO; +COLACE100 MG PO; +MUCINEX600 MG PO; +PREDNISONE 5 MG5 M1 PO; +TRAMADOL 50 MG50 MG PO
[2017-08-15 07:58] LABS: HEMATOCRIT 29.3 % (37.0-47.0); HEMOGLOBIN 9.6 gm/dL (12.0-15.0); MANUAL DIFF YES; MCH 30.1 pg (26.0-34.0); MCHC 32.9 g/dL (28.0-37.0); MCV 91.3 fL (80.0-100.0); PLATELET COUNT 372 thou/uL (150-400); RBC 3.21 mil/uL (4.20-5.00); RDW 15.9 % (10.5-14.5); WBC 10.3 thou/uL (4.0-11.0)
[2017-08-15 08:14] LABS: ANION GAP < 0 mmol/L (7-16); BUN 14 mg/dL (7-18); CALCIUM 9.5 mg/dL (8.5-10.1); CHLORIDE 92 mmol/L (98-107); CO2 42 mmol/L (21-32); CREATININE 0.7 mg/dL (0.6-1.0); GLUCOSE 103 mg/dL (74-106); POTASSIUM 4.1 mmol/L (3.5-5.1); SODIUM 133 mmol/L (136-145)
[2017-08-15 08:23] LABS: TROPONIN-I < 0.04 ng/mL (<0.06)
[2017-08-15 09:31] LABS: ABSOLUTE NEUTROPHILS 6.3 thou/uL (1.4-8.2); ANISOCYTOSIS 1+; METAMYELOCYTES 3 %; TOTAL CELL COUNT 100
== END 2017-08-15 11:30 | disposition home or self-care (01) ==
LOC: ER 07:06
PROVIDERS: Emergency Medicine
DX: R06.00 Dyspnea, unspecified (principal); S20.212A Contusion of left front wall of thorax, initial encounter; J44.9 Chronic obstructive pulmonary disease, unspecified; F41.9 Anxiety disorder, unspecified; E78.5 Hyperlipidemia, unspecified; I11.0 Hypertensive heart disease with heart failure; I50.9 Heart failure, unspecified; F10.99 Alcohol use, unspecified with unspecified alcohol-induced disorder; Z90.710 Acquired absence of both cervix and uterus; Z88.6 Allergy status to analgesic agent; Z88.0 Allergy status to penicillin; Z88.5 Allergy status to narcotic agent; Z87.891 Personal history of nicotine dependence; W01.0XXA Fall on same level from slipping, tripping and stumbling without subsequent striking against object, initial encounter; Y93.01 Activity, walking, marching and hiking; Y92.090 Kitchen in other non-institutional residence as the place of occurrence of the external cause; Y99.8 Other external cause status